=== PATIENT | female | born 1930 | race Caucasian/White ===

== ENCOUNTER 2018-02-03 20:20 | Emergency (ER) | payer OTHER, BC ==
[2018-02-03 21:21] LABS: Absolute Lymphocytes (CBC) 2.1 K/uL (0.7-4.9); Absolute Monocytes 0.8 K/uL (0.1-1.3); Absolute Neutrophil 5.1 K/uL (1.8-8.0); Basophils % 0.7 % (0-1.3); Eosinophils % 1.9 % (0-4.4); Lymphocytes % 26.1 % (15.3-44.8); MCH 30.5 pg (27.0-35.0); MCV 89.6 fL (80-100); MPV 9.1 fL (7.6-11.3); Monocytes % 9.3 % (3.3-12.3); RBC Red Blood Cell Count 4.02 M/uL (3.86-4.86)
[2018-02-03 21:41] LABS: Albumin 3.6 g/dL (3.4-5.0); Bilirubin Total 0.2 mg/dL (0.2-1.0); Potassium 3.8 mmol/L (3.5-5.1); Protein, Total 7.6 g/dL (6.4-8.2)
[2018-02-03] MEDS ORDERED: NA CHLORIDE 0.9% 1,000 ML ONE (22:08)
--- NOTE | 2018-02-03 23:40 | ER ---
Nurse's Notes [facility] Name: Wendi Galindo Age: 87 yrs Sex: Female : 1930 Arrival Date: 02/03/2018 Time: 20:26 Bed 5 Private MD: Diagnosis: Ventral hernia without obstruction or gangrene Presentation: 02/03 20:32 Presenting complaint: Patient states: that she is having upper abd pain that started a fc few days ago. Denies any nausea or vomiting but has had diarrhea today. Transition of care: patient was not received from another setting of care. Onset of symptoms was January 31, 2018. Risk Assessment: Do you want to hurt yourself or someone else? Patient reports no desire to harm self or others. Care prior to arrival: None. 20:32 Method Of Arrival: Ambulatory 20:32 Acuity: ROSSY 3 20:48 Initial Sepsis Screen: Does the patient meet any 2 criteria? No. Patient's initial fc sepsis screen is negative. Does the patient have a suspected source of infection? No. Patient's initial sepsis screen is negative. Triage Assessment: 20:48 General: Appears uncomfortable, obese, Behavior is calm, cooperative, appropriate for age. Pain: Complains of pain in right upper quadrant and left upper quadrant Pain currently is 10 out of 10 on a pain scale. Quality of pain is described as aching, crampy, sharp, stabbing, Pain began gradually, Is continuous. EENT: No deficits noted. Neuro: Level of Consciousness is awake, alert, obeys commands, Oriented to person, place, time, situation. Cardiovascular: No deficits noted. Respiratory: No deficits noted. GI: Reports upper abdominal pain, diarrhea. : No deficits noted. Derm: Skin is pink, warm \T\ dry. Historical: - Allergies: 20:38 No Known Allergies; fc - Home Meds: 20:38 Zanaflex 4 mg Oral tab q 6hrs prn [Active]; furosemide 40 mg Oral tab 1 tab once daily fc [Active]; doxazosin 1 mg oral tab 1 tab once daily [Active]; metoprolol tartrate 25 mg Oral tab 1 tab once daily [Active]; glimepiride 1 mg Oral tab 1 tab once daily [Active]; hydralazine 50 mg Oral tab 1 tab three times a day [Active]; multivitamin oral tab daily [Active]; Fish Oil 1,000 mg oral cap daily [Active]; Potassium Chloride 99 mg Oral once daily [Active]; magnesium oxide 250 mg Oral tab daily [Active]; Vitamin D Oral 1,000 unit daily [Active]; Zantac 150 mg Oral tab as needed [Active]; - PMHx: 20:38 Hypertension; Diabetes - NIDDM; fc - PSHx: 20:38 Hysterectomy; Knee surgery; fc - Immunization history:: Last tetanus immunization: unknown. - Social history:: Smoking status: Patient/guardian denies using tobacco. - Ebola Screening: : Patient negative for fever greater than or equal to 101.5 degrees Fahrenheit, and additional compatible Ebola Virus Disease symptoms Patient denies exposure to infectious person Patient denies travel to an Ebola-affected area in the 21 days before illness onset. Screenin:32 Abuse screen: Denies threats or abuse. Nutritional screening: No deficits noted. ea Tuberculosis screening: No symptoms or risk factors identified. Fall Risk None identified. Assessment: 22:08 Reassessment: Pt currently at NM. ea 22:29 General: Appears uncomfortable, Behavior is cooperative, appropriate for age. Pain: ea Complains of pain in left upper quadrant and right upper quadrant Quality of pain is described as aching. Neuro: Level of Consciousness is awake, alert, obeys commands, Oriented to person, place, time, situation. Cardiovascular: Patient's skin is warm and dry. Respiratory: Airway is patent Respiratory effort is even, unlabored, Respiratory pattern is regular, symmetrical. GI: Bowel sounds present X 4 quads. Abd is soft X 4 quads Abdomen is tender to palpation in right upper quadrant and left upper quadrant. : No signs and/or symptoms were reported regarding the genitourinary system. EENT: No signs and/or symptoms were reported regarding the EENT system. Derm: Skin is pink, warm \T\ dry. 23:38 Reassessment: Patient and/or family updated on plan of care and expected duration. Pain ea level reassessed. Patient is alert, oriented x 3, equal unlabored respirations, skin warm/dry/pink. Family at bedside. 02/04 00:05 Reassessment: pt had not taken her nightly dose of hydralazine 50mg, ERP notified of ak1 vitals and missed medication. pt informed to take her medication that was at bedside and ERP stated pt could leave. . Vital Signs: 02/03 20:38 BP 193 / 53; Pulse 60; Resp 18; Temp 98.4(O); Pulse Ox 98% on R/A; Weight 78.02 kg (R); fc Height 5 ft. 1 in. (154.94 cm) (R); Pain 10/10; 22:42 BP 184 / 56; Pulse 64; Resp 16; Temp 98.6; Pulse Ox 99% on R/A; ak1 02/04 00:05 BP 187 / 102; Pulse 65; Resp 18; Temp 97.4(TE); Pulse Ox 97% on R/A; Pain 3/10; ak1 02/03 20:38 Body Mass Index 32.50 (78.02 kg, 154.94 cm) ED Course: 02/03 20:26 Patient arrived in ED. ds1 20:34 Triage completed. fc 20:38 Arm band placed on Patient placed in an exam room, on a stretcher. fc 20:42 Robert Elder MD is Attending Physician. ps1 20:52 Radiology exam delayed due to lab results not completed at this time. (BUN/Creatinine). kw1 21:01 Inserted saline lock: 20 gauge in left antecubital area, using aseptic technique. Blood oe collected. 21:02 Shani Ba, RN is Primary Nurse. aj 21:25 Radiology exam delayed due to lab results not completed at this time. (BUN/Creatinine). kw1 22:[address] via stretcher. nj 22:08 CT completed. Patient tolerated procedure well. Patient moved back from CT. nj 22:12 CT Abd/Pelvis - W/Contrast In Process Unspecified. EDMS 22:29 Patient has correct armband on for positive identification. Placed in gown. Bed in low ea position. Call light in reach. Side rails up X2. 22:43 No provider procedures requiring assistance completed. ak1 23:23 Urine Microscopic Only Sent. oe 02/04 00:07 IV discontinued, intact, bleeding controlled, No redness/swelling at site. Pressure ak1 dressing applied. Administered Medications: 02/03 22:41 Drug: NS 0.9% 1000 ml Route: IV; Rate: 1 bolus; Site: left antecubital; ak1 23:34 Follow up: IV Status: Completed infusion ak1 Outcome: 23:40 Discharge ordered by . ps1 02/04 00:07 Discharged to home via wheelchair, with family. ak1 Condition: improved Discharge instructions given to patient, family, Instructed on discharge instructions, follow up and referral plans. Demonstrated understanding of instructions, follow-up care. 00:09 Patient left the ED. ak1 Signatures: Dispatcher [employer] Shani Concepcion RN RN Saira Rg RN Erica Felix Amber, RN RN ak1 [employer] [place] oe Antunez, Elena, RN RN ea Singer, Phillip, MD MD ps1 Meme Guerrero kw1
--- NOTE | 2018-02-03 23:40 | EDPHYS ---
Physician Documentation [facility] Name: Wendi Galindo Age: 87 yrs Sex: Female : 1930 Arrival Date: 02/03/2018 Time: 20:26 Bed 5 Private MD: ED Physician Robert Elder HPI: 02/03 23:40 This 87 yrs old Female presents to ER via Ambulatory with complaints of ps1 Abdominal Pain. 23:40 patient c/o abdominal pain and mass. Onset was this past week and worse today. States ps1 that the pain is intermittent and fluctuates in intensity and course. Pain is localized over epigastrium. . Historical: - Allergies: 20:38 No Known Allergies; fc - Home Meds: 20:38 Zanaflex 4 mg Oral tab q 6hrs prn [Active]; furosemide 40 mg Oral tab 1 tab once daily fc [Active]; doxazosin 1 mg oral tab 1 tab once daily [Active]; metoprolol tartrate 25 mg Oral tab 1 tab once daily [Active]; glimepiride 1 mg Oral tab 1 tab once daily [Active]; hydralazine 50 mg Oral tab 1 tab three times a day [Active]; multivitamin oral tab daily [Active]; Fish Oil 1,000 mg oral cap daily [Active]; Potassium Chloride 99 mg Oral once daily [Active]; magnesium oxide 250 mg Oral tab daily [Active]; Vitamin D Oral 1,000 unit daily [Active]; Zantac 150 mg Oral tab as needed [Active]; - PMHx: 20:38 Hypertension; Diabetes - NIDDM; fc - PSHx: 20:38 Hysterectomy; Knee surgery; fc - Immunization history:: Last tetanus immunization: unknown. - Social history:: Smoking status: Patient/guardian denies using tobacco. - Ebola Screening: : Patient negative for fever greater than or equal to 101.5 degrees Fahrenheit, and additional compatible Ebola Virus Disease symptoms Patient denies exposure to infectious person Patient denies travel to an Ebola-affected area in the 21 days before illness onset. ROS: 23:40 Constitutional: Negative for fever, chills, and weight loss, Eyes: Negative for injury, ps1 pain, redness, and discharge, ENT: Negative for injury, pain, and discharge, Cardiovascular: Negative for chest pain, palpitations, and edema, Respiratory: Negative for shortness of breath, cough, wheezing, and pleuritic chest pain, : Negative for injury, bleeding, discharge, and swelling, MS/Extremity: Negative for injury and deformity, Skin: Negative for injury, rash, and discoloration, Neuro: Negative for headache, weakness, numbness, tingling, and seizure. 23:40 Abdomen/GI: Positive for abdominal pain. Exam: 23:40 Constitutional: This is a well developed, well nourished patient who is awake, alert, ps1 and in no acute distress. Head/Face: Normocephalic, atraumatic. Eyes: Pupils equal round and reactive to light, extra-ocular motions intact. Lids and lashes normal. Conjunctiva and sclera are non-icteric and not injected. Chest/axilla: Normal chest wall appearance and motion. Nontender with no deformity. No lesions are appreciated. Cardiovascular: Regular rate and rhythm. No gallops, murmurs, or rubs. Normal PMI, no JVD. No pulse deficits. Respiratory: Lungs have equal breath sounds bilaterally, clear to auscultation and percussion. No rales, rhonchi or wheezes noted. No increased work of breathing, no retractions or nasal flaring. Skin: Warm, dry with normal turgor. Normal color with no rashes, no lesions, and no evidence of cellulitis. 23:40 Abdomen/GI: Inspection: abdomen appears normal, Bowel sounds: normal, Palpation: mass, that is tender, of the right upper quadrant, Hernia: noted in the epigastric area. Vital Signs: 20:38 BP 193 / 53; Pulse 60; Resp 18; Temp 98.4(O); Pulse Ox 98% on R/A; Weight 78.02 kg (R); fc Height 5 ft. 1 in. (154.94 cm) (R); Pain 10/10; 22:42 BP 184 / 56; Pulse 64; Resp 16; Temp 98.6; Pulse Ox 99% on R/A; ak1 02/04 00:05 BP 187 / 102; Pulse 65; Resp 18; Temp 97.4(TE); Pulse Ox 97% on R/A; Pain 3/10; ak1 02/03 20:38 Body Mass Index 32.50 (78.02 kg, 154.94 cm) fc Procedures: 02/03 23:40 Performed Reduction of Ventral hernia. . Manual pressure applied to ventral hernia and ps1 was able to easily pass through defect. Pain improved. . MDM: 20:57 Patient medically screened. ps1 23:45 Data reviewed: vital signs, nurses notes, lab test result(s), radiologic studies, CT ps1 scan. 02/03 20:49 Order name: CBC with Diff; Complete Time: 21:29 ps1 02/03 20:49 Order name: Lipase; Complete Time: 21:59 ps1 02/03 20:49 Order name: Urine Microscopic Only ps1 02/03 20:49 Order name: CMP; Complete Time: 21:59 ps1 02/03 20:49 Order name: Troponin (emerg Dept Use Only); Complete Time: 21:59 ps1 02/03 23:22 Order name: Urine Dipstick--Ancillary (enter results); Complete Time: 23:57 02/03 20:49 Order name: IV Saline Lock; Complete Time: 21:04 [facility] 02/03 20:49 Order name: Labs collected and sent; Complete Time: 21:05 [facility] 02/03 20:49 Order name: Urine Dipstick-Ancillary (obtain specimen); Complete Time: 23:23 ps1 02/03 20:49 Order name: CT Abd/Pelvis - W/Contrast ps1 Administered Medications: 22:41 Drug: NS 0.9% 1000 ml Route: IV; Rate: 1 bolus; Site: left antecubital; ak1 23:34 Follow up: IV Status: Completed infusion ak1 Disposition: 02/03/18 23:40 Discharged to Home. Impression: Ventral hernia without obstruction or gangrene. - Condition is Stable. - Discharge Instructions: Hernia. - Medication Reconciliation Form, Thank You Letter, Antibiotic Education, Prescription Opioid Use form. - Follow up: Private Physician; When: As needed; Reason: Further diagnostic work-up, Recheck today's complaints, Continuance of care, Re-evaluation by your physician. Follow up: Emergency Department; When: As needed; Reason: Worsening of condition. - Problem is an ongoing problem. - Symptoms have improved. Signatures: Dispatcher [employer] EDMS Saira Borjas RN RN Alix Simmons RN RN ak Robert Elder MD MD ps1 Corrections: (The following items were deleted from the chart) 02/04 00:09 02/03 23:40 02/03/2018 23:40 Discharged to Home. Impression: Ventral hernia without ak1 obstruction or gangrene. Condition is Stable. Forms are Medication Reconciliation Form, Thank You Letter, Antibiotic Education, Prescription Opioid Use. Follow up: Private Physician; When: As needed; Reason: Further diagnostic work-up, Recheck today's complaints, Continuance of care, Re-evaluation by your physician. Follow up: Emergency Department; When: As needed; Reason: Worsening of condition. Problem is an ongoing problem. Symptoms have improved. ps1
[2018-02-03 23:53] LABS: Urine Blood NEGATIVE (NEG); Urine Glucose NEGATIVE (NEG); Urine Protein NEGATIVE (NEG); Urine Specific Gravity 1.015 (1.005-1.030)
[2018-02-04 00:51] LABS: Urine Bacteria <20 /HPF (<20); Urine RBC <5 /HPF (NONE SEEN)
[2018-02-04 00:52] LABS: Urine Culture Reflex Order NOT NEEDED
--- NOTE | 2018-02-04 07:48 | RAD REPORT ---
EXAM DESCRIPTION: CT - Abdomen Pelvis W Contrast - 02/04/2018 5:32 am CLINICAL HISTORY: Abdominal pain/ upper abdominal pain times several days. Diarrhea. COMPARISON: none. TECHNIQUE: Computed axial tomography of the abdomen pelvis was obtained. 100 cc Isovue-300 was admin istered intravenously. Oral contrast was not requested which limits evaluation of bowel.A preliminary report was generated by [employer] and reviewed prior to this dictation All CT scans are performed using dose optimization technique as appropriate and may include automated exposure control or mA/KV adjustment according to patient size. FINDINGS: The liver contains multiple cysts. The largest measures 2.8 centimeters. Two sub centimeter intermediate density splenic lesions are present. The largest measures 10 millimet ers. The pancreas is unremarkable. Mild adrenal hyperplasia is suspected. Kidneys are mildly diminished in size containing multiple small cysts. Hydronephrosis is not present. A ventral hernia within the lower abdomen contains a loop of nondilated small bowel. The neck measure s 2.6 centimeters. This seen. Diverticula stem from the colon without evidence of diverticulitis. Spondylosis involves lumbar spine resulting in spinal stenosis. A hysterectomy has been performed. A small pericardial effusion is seen IMPRESSION: Ventral hernia containing small bowel A small hiatal hernia Small pericardial effusion Two subcentimeter splenic lesions are nonspecific. A followup ultrasound in 3 months is recommended f or re-evaluation
== END 2018-02-04 00:09 | disposition home or self-care (01) ==
LOC: ER 20:20
DX: K43.9 Ventral hernia without obstruction or gangrene (principal); I10 Essential (primary) hypertension; E11.9 Type 2 diabetes mellitus without complications
CPT/HCPCS: 36415; 74177; 80053; 83690; 84484; 85025; J7030; Q9967; 81003; 81015; 96360; 99284